=== PATIENT | male | born 1960 | race Caucasian/White ===

== ENCOUNTER → 2023-09-06 11:00 | Outpatient (REF) | payer OTHER, SELFPAY | LOC: HWRAD 11:00 | PROVIDERS: ATTENDING PHYSICIAN Nurse Practitioner Family | DX: E11.9 Type 2 diabetes mellitus without complications (principal); R60.0 Localized edema; E66.01 Morbid (severe) obesity due to excess calories; G62.9 Polyneuropathy, unspecified; Z87.442 Personal history of urinary calculi | CPT/HCPCS: 93970 ==

== ENCOUNTER 2023-10-25 06:15 | Day surgery (SDC) | payer OTHER, SELFPAY ==
[2023-10-25 08:55] VITALS: BMI 36.6
[2023-10-25 08:56] VITALS: BMI 36.6
[2023-10-25] MEDS: NEURONTIN 300 MG PO (09:31)
[2023-10-25 09:34] LABS: Glucose - Point of Care 167 mg/dl (70-99)
[2023-10-25] MEDS: NORMOSOL-R 1000 IV (09:43)
[2023-10-25 09:45] VITALS: BP 128/66
[2023-10-25 11:36] VITALS: BP 111/70
[2023-10-25 11:45] VITALS: BP 128/74
[2023-10-25 11:48] LABS: Glucose - Point of Care 146 mg/dl (70-99)
--- NOTE | 2023-10-25 11:48 | OR.RPT ---
Operative Report
Operative Report
Patient Name: Matt Bray
Date of : 1960
Date of Operation: October 25, 2023
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
Postoperative Diagnosis: Same
Surgeon: Sancho Medellin M.D.
Operation: Radical resection of the abdominal wall melanoma in situ - 92339 (4 cm x 2.5 cm)
������������������� At least 0.5 cm margins.
Anesthesia: Local with IV sedation
Estimated Blood Loss: Minimal
Drains: None
Specimen: Abdominal wall melanoma in situ
Complications: �None
Procedure:
The patient was taken to the operating room and placed in the usual supine position. After adequate IV sedation was obtained, the patient's abdomen was prepped and draped in the usual sterile fashion. The area around the tumor was injected with 1%
lidocaine. An elliptical incision (4 cm x 2.5 cm) was made over the area with a #15 blade. The subcutaneous tissue and the underlying fascia were divided with electrocautery. The tumor was identified, carefully resected off the underlying muscle,
and sent for pathology evaluation. After obtaining adequate hemostasis, the incision was closed in multiple layers. The fascia was reapproximated with #2-0 Vicryl in an interrupted fashion. The subcutaneous tissue was approximated with #3-0 Vicryl
interrupted fashion. The skin was approximated with #4-0 Monocryl in a running subcuticular fashion. The Steri-Strips and sterile dressings were applied to the incisions. The patient tolerated the procedure well. The final instrument, needle, and
sponge counts were correct. The patient was transferred to the recovery room.
Wide Local Excision
Wide Local Excision
Operation performed with curative intent: Yes
Original Breslow thickness of lesion (in mm): Melanoma in situ
Clinical Margin Width: 0.5 cm
Depth of Excision: Full Thickness skin/subcutaneous tissue down to fascia (melanoma)
[2023-10-25 12:00] VITALS: BP 119/63
[2023-10-25 12:15] VITALS: BP 128/71
[2023-10-25] MEDS: TYLENOL 650 MG PO (12:40)
[2023-10-25 14:40] VITALS: BMI 36.6
== END 2023-10-25 12:45 | disposition home or self-care (01) ==
LOC: SDS 06:15
PROVIDERS: ATTENDING PHYSICIAN Surgery
DX: D22.5 Melanocytic nevi of trunk (principal); C43.59 Malignant melanoma of other part of trunk
CPT/HCPCS: 22904; 88305; 82962; 88341; 88342

== ENCOUNTER → 2023-12-02 13:39 | Outpatient (REF) | payer OTHER, SELFPAY | LOC: HWRAD 13:39 | PROVIDERS: ATTENDING PHYSICIAN Nurse Practitioner Family | DX: R10.31 Right lower quadrant pain (principal) | CPT/HCPCS: 76705 ==

== ENCOUNTER → 2023-12-26 07:53 | Outpatient (REF) | payer OTHER, SELFPAY | LOC: RAD 07:53 | PROVIDERS: ATTENDING PHYSICIAN Nurse Practitioner Family | DX: R10.31 Right lower quadrant pain (principal); R10.30 Lower abdominal pain, unspecified | CPT/HCPCS: 74177; Q9967 ==

== ENCOUNTER → 2025-02-05 09:50 | Outpatient (REF) | payer OTHER, SELFPAY | LOC: WDC 09:50 | PROVIDERS: ATTENDING PHYSICIAN Nurse Practitioner Family | DX: R59.0 Localized enlarged lymph nodes (principal) | CPT/HCPCS: 76642; 77062; 77066 ==

== ENCOUNTER → 2025-02-28 12:51 | Outpatient (REF) | payer OTHER, SELFPAY | LOC: HWRCS 12:51 | PROVIDERS: ATTENDING PHYSICIAN Nurse Practitioner Family; FAMILY PHYSICIAN Internal Medicine | DX: R60.0 Localized edema (principal); I11.0 Hypertensive heart disease with heart failure | CPT/HCPCS: 93306 ==